=== PATIENT | male | born 1995 | race Caucasian/White ===

== ENCOUNTER 2017-12-03 17:38 | Inpatient (IN) | payer OTHER ==
[~2017-12-03] VITALS: Ht 182.9 cm; Wt 79.4 kg
== END 2017-12-04 20:43 | disposition expired | DRG 557 ==
LOC: EDBD 17:38 → ER 17:38 → ICU-2 21:10
PROC: 4A033R1 Measurement of Arterial Saturation, Peripheral, Percutaneous Approach (ICD-10-PCS; 2017-12-03)
PROC: 3E0F7GC Introduction of Other Therapeutic Substance into Respiratory Tract, Via Natural or Artificial Opening (ICD-10-PCS; principal; 2017-12-04)
PROC: 5A1935Z Respiratory Ventilation, Less than 24 Consecutive Hours (ICD-10-PCS; 2017-12-04)
PROC: 0BH17EZ Insertion of Endotracheal Airway into Trachea, Via Natural or Artificial Opening (ICD-10-PCS; 2017-12-04)
DX: M62.82 Rhabdomyolysis (principal); J96.01 Acute respiratory failure with hypoxia; F14.229 Cocaine dependence with intoxication, unspecified; N17.8 Other acute kidney failure; I47.1 Supraventricular tachycardia; D68.8 Other specified coagulation defects; E86.0 Dehydration; T40.5X1A Poisoning by cocaine, accidental (unintentional), initial encounter; Y92.89 Other specified places as the place of occurrence of the external cause; I46.8 Cardiac arrest due to other underlying condition